=== PATIENT | female | born 2000 | race Caucasian/White ===

== ENCOUNTER 2019-01-03 15:41 | Outpatient (CLI) | payer OTHER ==
--- NOTE | 2019-01-03 16:44 | MRI ---
MRI Lower Ext Jt Lt foot WO Con HISTORY:Acquired pes planus deformity of left foot. Chronic pain. Swelling along medial side of foot. This area was marked with a radiopaque marker. COMPARISON: None. FINDINGS: The Achilles tendon is normal in appearance. Peroneus longus and brevis tendons are intact. Trace tenosynovitis change of a normal-appearing posterior tibialis tendon is seen. The flexor digito rum longus and flexor hallucis longus tendons are normal. The anterior extensor tendon group is normal. Plantar fascia and sinus tarsi region as well as spring ligament complex are normal. Lisfranc's ligament appears intact. Lisfranc's joint is normal. There is no abnormal marrow signal change. The area marked along the medial side of the corresponds to the abductor pollicis muscle which is sli ghtly prominent but does not appear grossly enlarged. There is no edema change within the muscle to suggest any type of denervation change. No atrophic changes of the muscle are seen. IMPRESSION: Unremarkable exam.
== END 2019-01-03 15:42 | disposition home or self-care (01) ==
LOC: MRI 15:41
DX: M21.42 Flat foot [pes planus] (acquired), left foot (principal); M25.572 Pain in left ankle and joints of left foot; G89.29 Other chronic pain